=== PATIENT | male | born 1955 | race Caucasian/White ===

== ENCOUNTER 2022-07-12 10:25 | Emergency (ER) | payer OTHER, MEDICARE ==
[~2022-07-12] VITALS: Ht 170.2 cm; Wt 81.6 kg
[~2022-07-12 10:25] MED LIST: DILT240C57 PO
[2022-07-12 10:40] VITALS: BP_SYST 214
[2022-07-12] MEDS ORDERED: ACETAMINOPHEN 500 MG TABLET PO ONE (11:30)
--- NOTE | 2022-07-12 11:39 | NUR ---
Pt bib self from home CC runny nose, body aches, Pt has a dry cough, eyes are running. Pt has HX of HTN without compliance since 2015. BP 210/177 notified.
[2022-07-12] MEDS ORDERED: METO25TA6 PO (11:56)
[2022-07-12] MEDS ORDERED: cloNIDine HCL 0.2 MG TABLET PO ONE (12:00)
--- NOTE | 2022-07-12 12:00 | NUR ---
TORIE Salcedo at bedside examining patient.
--- NOTE | 2022-07-12 12:43 | NUR ---
Patient given written and verbal discharge instructions and verbalizes understanding. ER MD discussed with patient the results and treatment provided. Patient in stable condition. ID arm band removed. Rx of Lopressor given. Patient educated on pain management and to follow up with PMD. Opportunity for questions provided and answered. Medication side effect fact sheet provided.
[2022-07-12 12:44] VITALS: BP_SYST 210
== END 2022-07-12 12:44 | disposition home or self-care (01) ==
LOC: SED 10:25
DX: U07.1 COVID-19 (principal); R05.9 Cough, unspecified; I10 Essential (primary) hypertension; J45.909 Unspecified asthma, uncomplicated; Z91.14 Patient's other noncompliance with medication regimen; Z79.899 Other long term (current) drug therapy
CPT/HCPCS: 99283